=== PATIENT | female | born 1985 | race Caucasian/White ===

== ENCOUNTER → 2020-03-11 | Outpatient (CLI) | payer OTHER, SELFPAY ==
[2020-03-17 01:47] LABS: HPV Reflexed? NOT INDICATED
== END | disposition home or self-care (01) ==
LOC: LABSPEC 15:57
PROVIDERS: Visit Provider Student in an Organized Health Care Education/Training Program
DX: Z12.4 Encounter for screening for malignant neoplasm of cervix (principal)
CPT/HCPCS: 88175; G0145

== ENCOUNTER → 2020-04-14 | Outpatient (CLI) | payer OTHER, SELFPAY ==
[2020-04-17 03:06] LABS: Chlamydia By Nucleic Acid AMP Negative (Negative)
[2020-04-17 12:32] LABS: Gonococcus By Nucleic Acid AMP Negative (Negative)
== END | disposition home or self-care (01) ==
LOC: LABSPEC 17:19
PROVIDERS: Visit Provider Student in an Organized Health Care Education/Training Program
DX: Z30.430 Encounter for insertion of intrauterine contraceptive device (principal); Z11.3 Encounter for screening for infections with a predominantly sexual mode of transmission
CPT/HCPCS: 87491; 87591

== ENCOUNTER 2020-05-16 05:57 | Day surgery (SDC) | payer OTHER, SELFPAY ==
[2020-05-15 12:52] LABS: Hematocrit 40.8 % (37-47); Hemoglobin 13.1 g/dL (12.0-15.0); Mean Corp Hgb Conc 32.1 g/dL (32-36); Mean Corpuscular Hgb 29.2 pg (27.0-32.0); Mean Corpuscular Volume 90.9 fL (81-99); Platelet Count 252 K/mm3 (150-450); RBC Distribution Width CV 13.2 % (11.6-14.6); RBC Distribution Width SD 44.4 fl (35.1-43.9); Red Blood Count 4.49 M/mm3 (4.2-5.4); White Blood Count 8.8 K/mm3 (4.4-11.0)
[2020-05-16 06:33] LABS: Internal QC Validated? YES +Cl - CLEAR BKGD; Pregnancy, Urine Negative Negative
--- NOTE | 2020-05-16 06:37 | PCM.HPOB.BLA ---
History and Physical Date of Admission: 05/16/20 Surgical History and Physical Jayda Figueroa, a 34 year old female 2 0 0 0 2, presents for labiaplasty on May 16, 2020 at 7:30. She reports enlarged hypertrophic labia minora. This causes her great discomfort both emotionally and physically. The labia rub on her underwear, causing irritation daily. She also has irritation and pain with intercourse secondary to the enlarged labia. She is very uncomfortable daily due to this. MEDICAL HISTORY: Denies MEDICATIONS HISTORY: Current medications prescribed by our practice are: 1. Liletta 20.1 mcg/24 hrs (6 yrs) 52 mg intrauterine device, Placed 04/14/20. ALLERGIES: No Known Drug Allergies SOCIAL HISTORY: Alcohol Use - occasionally Smoking - Never Illicit Drug Use - denies use of street drugs FAMILY HISTORY: Denies hx of blood clots, bleeding disorders, issues with anesthesia PAST PREGNANCIES: Total Pregnancies - 2; Full Term Pregnancies - 2; Premature - 0; Abortions, Induced - 0; Abortions, Spontaneous - 0; Ectopics - 0; Multiple Births - 0; Living Children - 2 SURGICAL HISTORY: 1. , 2013 and 2014 ; - Review of Systems: GENERAL - Denies fever, or chills SKIN - Denies skin changes EYES - Denies visual changes EARS - Denies difficulty hearing NOSE - Denies nasal congestion or bleeding MOUTH - Denies sore throat or difficulty swallowing NECK - Denies pain or swelling RESPIRATORY - Denies shortness of breath or wheezing CARDIOVASCULAR - Denies palpitations or chest pain GASTROINTESTINAL - Denies nausea, vomiting, diarrhea, constipation GENITOURINARY - Denies dysuria, frequency of urination, incontinence of urine MUSCULOSKELETAL - Denies joint or muscle pain NEUROLOGICAL - Denies localized numbness or weakness PSYCHIATRIC - Denies depression or anxiety ENDOCRINE - Denies heat or cold intolerance, weight loss or gain HEMATO-IMMUNOLOGIC - Denies excesive bleeding with cuts PHYSICAL EXAM BP- 110/62 Sitting, Right arm, large cuff Temp- 97.5 Taken Orally Weight- 206.74603 lbs Height- 63 inch BMI:36.64 CONSTITUTIONAL - NAD, well nourished, and well developed SKIN - No rash, lesions, or ulcers HEENT - Normocephalic, PERRLA, EOMI NECK - No nodes, no nuchal rigidity and thyroid normal size and texture LYMPH NODES - Palpation of lymph nodes in neck and groins within normal limits LUNGS - CTA x2 without wheezes, crackles or rales CARDIAC - Regular rate and rhythm without rubs, murmurs, or gallops ABDOMEN - Without hepatosplenomegaly, distention, masses, rebound, or guarding; normal bowel sounds; no hernias EXTREMITIES - No edema or calf tenderness NEUROLOGICAL - Cranial nerves II-XII grossly intact PSYCHIATRIC - A and O to time, place, person, mood and affect External Genitial Vagina - large labial hypertrophy minora Urethra/Urethral Meatus - non-tender Bladder - non-tender Vagina - vaginal salas are pink and moist without loss of rugae and no evidence of atropy Cervix - without cervical motion tenderness and has normal size and features without evident lesions Uterus - 5-6 cm in size, mobile and nontender Adnexa - clear without massess or tenderness ASSESSMENT/PLAN: 1. Hypertrophy Of Vulva Extensive labial (minora) hypertrophy. This has worsened since delivery of last child. Patient reports pain and discomfort day to day due to rubbing of labia on underwear and pants, other skin folds She also reports pain with intercourse as the labia are dragged into the vaginal orifice. Plan for labiaplasty. R/B/A discussed with the patient. Risks include, but are not limited to: risk of bleeding to the point of transfusion, infection, injury to surrounding tissue, VTE, ICU admission. and consents signed.
[2020-05-16 06:42] VITALS: BP 98/62; PULSE 78; RESP 16; TEMP 36.7; O2SAT 100; BMI 36.5
--- NOTE | 2020-05-16 07:28 | PCM.DC ---
- Discharge Diagnoses Reason(s) for Visit for Discharge Instructions: Labiaplasty You will use the following diet at home:: No restrictions Your food should be the consistency of: Regular Discharge Activity: Return to Normal Activity, May not drive while taking narcotic pain medications., May Shower May resume sexual activity in: 4-6 weeks Weight Bearing Status: Weight bearing as tolerated Call your doctor if your incision/area has: Continuous Slow Oozing, Sudden Increased Bleeding, Increased Pain/ Swelling Call your doctor if you observe: Fever of 101 or Higher, Inability to urinate, Inability to have a bowel movement, Using more than one pad per hour, Shortness of breath Allergies/Adverse Reactions: Allergies No Known Allergies Allergy (Verified 05/09/20 12:48) Medications to take at Discharge Blood Builder Mini 1 tab PO DAILY 05/09/20 Multivitamin with Minerals [Multiple Vitamin] 1 ea PO DAILY 05/09/20 Oxycodone [Oxyir] 5 mg PO Q6H PRN PRN 3 Days #12 tab 05/16/20 The following prescriptions were given: Oxycodone [Oxyir] 5 mg PO Q6H PRN PRN 3 Days #12 tab PRN Reason: Pain Score 6-10 Transmission Status: Received by [facility] Orders to be completed after discharge: ,Urine Time Frame: 05/16/20, Facility: [facility], Location: Laboratory Primary Care Physician: Care Physician,No Primary [Primary Care Provider] - Test Results: Test results from this visit will be discussed in further detail at your follow-up appointment, if applicable. Please Follow Up With: Martha Zhang DO When: 2 weeks
--- NOTE | 2020-05-16 07:29 | PCM.OPRPT ---
Report of Operation Date of Procedure: 05/16/20 Pre-Operative Diagnosis: Labial hypertrophy Post-Operative Diagnosis: Labial hypertrophy Surgery/Procedure Performed:: Labiaplasty Description of Surgical Findings:: Noted very hypertrophied labia minora on examination. IUD strings palpated at the cervix on bimanual exam. Type of Anesthesia:: General Specimen's removed: portion of right and left labia minora Estimated Blood Loss (mL): 25 cc Fluids Replaced: 800 cc Description of Procedure: Patient taken to the operating room placed under general anesthesia. Patient placed in the dorsal lithotomy position prepped and draped in usual sterile fashion. Bladder drained clear urine. Examination of external genitalia completed noting bilateral labial hypertrophy. Labia marked. Left labia grasped with Allis clamp and excess labial tissue removed using scalpel. Oozing controlled with Bovie. Right labia then grasped with an Allis clamp and excess labial tissue removed using scalpel. 2 stitches placed in subcutaneous tissue for hemostasis. The lower portion of the introitus. Hemostasis noted at this time. Interrupted stitches placed to close the right labial tissue. Left labial tissue was closed in a similar fashion. Labia cleaned with moist lap and examined for hemostasis. Labial reapproximation noted to be hemostatic at this time. Bimanual exam completed with palpation of IUD strings at the cervix. Silvadene placed along the labial incisions. At the end of the procedure all needle, lap, sponge counts correct x3.
--- NOTE | 2020-05-16 07:30 | TISS_PTH ---
PATIENT: CHAR MEIER LOC: [facility] [place] U#:[id number] AGE/SX: 34/F ROOM: RE05/16/[address]: Dr. Martha Zhang DO : 1985 BED: DIS: 05/16/2020 SPEC #: [id number] RECD: 05/16/20 11:12 STATUS: LEONARDO BENNETT #: [id number] JACK: 05/16/20 07:[address]: Martha Zhang DEPT: SURGICAL PATHOLOGY RECD BY: Pravin Ingram ENTERED: 05/16/20 11:53 SP TYPE: Tissue Bx OT DR: No Primary Care Phys Tissues: TISSUE SURGICALLY REMOVED Procedures: Surgery Specimen Level IV HEADER OPERATION: Labiaplasty PRE-OP DIAGNOSIS: Hypertrophy of vulva TISSUE SUBMITTED: Labial tissue MICROSCOPIC DIAGNOSIS Labial tissue, excision: Mild hyperkeratosis and minimal chronic inflammation. No evidence of dysplasia. AM:vee 05/19/2020 MICROSCOPIC DESCRIPTION Slides are reviewed. GROSS DESCRIPTION Received in fixative is one container labeled with the patient's name and designated labial tissue. The specimen consists of two glistening fragments of govea mucosa with attached submucosal tissue measuring in aggregate 8.5 x 3 x 1 cm. No mass lesions are identified. [employer] Manager sections are submitted in two cassettes. / AM:vee 05/16/20 TC:3 CPT: 72193
[2020-05-16] MEDS: Lactated Ringers 1,000 ML 100 ML IV (07:40)
[2020-05-16] MEDS: Bupiv/Epi 0.5% Mpf 30 ML Vial (08:28)
[2020-05-16] MEDS: Silver Sulfadiazine 1% Crm 50 gm Bottle 1 APPLIC TOPICAL (08:29)
[2020-05-16 08:39] VITALS: BP 116/59; BP 98/62; PULSE 112; RESP 16; TEMP 36.4; O2SAT 100
[2020-05-16 08:45] VITALS: BP 110/58; BP 98/62; PULSE 89; RESP 16; O2SAT 100
[2020-05-16 09:00] VITALS: BP 108/58; BP 98/62; PULSE 91; RESP 16; TEMP 36.2; O2SAT 100
[2020-05-16 10:15] VITALS: BP 115/48; BP 98/62; PULSE 87; RESP 16; TEMP 36.7; O2SAT 100
[2020-05-16 10:54] VITALS: BP 96/62; BP 98/62; PULSE 76; RESP 16; TEMP 36.4; O2SAT 100
== END 2020-05-16 10:56 | disposition home or self-care (01) ==
LOC: SDC 05:57 → AC 05:58
PROVIDERS: Referring Provider Student in an Organized Health Care Education/Training Program; Visit Provider Student in an Organized Health Care Education/Training Program
PROC: (CPT 56620; principal; 2020-05-16 07:15)
DX: N90.60 Unspecified hypertrophy of vulva (principal); Z20.822 Contact with and (suspected) exposure to COVID-19
CPT/HCPCS: 00906; 56620; 36415; 81025; 85027; 86850; 86900; 86901; 87426; 88305; C9803; J7120; J2405